=== PATIENT | female | born 1970 | race Caucasian/White ===

== ENCOUNTER 2018-05-24 07:59 | Emergency (ER) | payer OTHER ==
[2018-05-24 08:02] VITALS: BMI 26.8
[2018-05-24 08:04] VITALS: O2SAT 100
--- NOTE | 2018-05-24 09:25 | ED PDOC ---
HPI: Back Time Seen by Provider: 05/24/18 08:26 Chief Complaint (Nursing): Back Pain History Per: Patient Additional Complaint(s): 48 y/o F with no PMHx presents to ED due to neck pain that began 3 days ago. Pain is sharp and dull, base of skull travel to upper back and both shoulders, 8/10 intensity, aggravated with movement of head and neck. 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 No paresthesias reported. Pt has been taking PO Advil 4 pills a day with no relief. Pt took PO Percocet from 's stock yesterday. Pt denies fever, chills, chest pain, nausea, vomiting, abdominal pain, rash and peripheral edema. PMD: Dr Martin Flores PMHx: asthma PSHx: . FHx: NC SHx: denied tobacco, alcohol or rec drugs. Past Medical History Vital Signs: Last Vital Signs Temp 98.2 F 05/24/18 08:02 Pulse 82 05/24/18 08:02 Resp 17 05/24/18 08:02 BP 148/89 05/24/18 08:02 Pulse Ox 100 05/24/18 08:02 - Medical History PMH: Asthma - Surgical History Surgical History: (x2) - Family History Family History: States: Unknown Family Hx - Living Arrangements Living Arrangements: With Family - Social History Current smoker - smoking cessation education provided: No Ex-Smoker (has not smoked in the last 12 months): No Alcohol: None Drugs: Denies - Home Medications Home Medications: Ambulatory Orders Medication Instructions Recorded Cyclobenzaprine [Cyclobenzaprine 10 mg PO Q8 #10 tab 05/24/18 HCl] Naproxen [Naprosyn] 500 mg PO Q12H #20 tab 05/24/18 - Allergies Allergies/Adverse Reactions: Allergies Allergy/AdvReac Type Severity Reaction Status Date / Time seasonal Allergy CONGESTION Uncoded 03/20/18 08:56 Review of Systems Constitutional: Negative for: Fever, Chills Eyes: Negative for: Pain, Conjunctivae Inflammation ENT: Negative for: Ear Pain, Mouth Pain, Throat Pain Cardiovascular: Negative for: Chest Pain, Palpitations Respiratory: Negative for: Cough, Shortness of Breath Gastrointestinal: Negative for: Nausea, Vomiting, Abdominal Pain Genitourinary Female: Negative for: Dysuria, Frequency Musculoskeletal: Positive for: Neck Pain, Shoulder Pain, Back Pain (upper back) Skin: Negative for: Rash Neurological: Negative for: Weakness, Numbness, Incoordination Psych: Negative for: Anxiety, Depression Physical Exam - Physical Exam Appears: Positive for: Uncomfortable Head Exam: Positive for: ATRAUMATIC, NORMAL INSPECTION Skin: Positive for: Normal Color Eye Exam: Positive for: Normal appearance, EOMI ENT: Negative for: Nasal Congestion, Pharyngeal Erythema, Tonsillar Exudate Neck: Positive for: Limited ROM (due to pain), Trachea Midline, Pain On Movement Of Neck (Tederness on cervical spine since occipital area to . No paraspinal tenderness. Reduced ROM of bilateral upper extremities due to pain, 90 degrees of abduction after that very painfu.) Cardiovascular/Chest: Positive for: Regular Rate, Rhythm Respiratory: Positive for: Normal Breath Sounds. Negative for: Rhonchi, Stridor, Wheezing Gastrointestinal/Abdominal: Positive for: Bowel Sounds, Soft. Negative for: Tenderness, Guarding Back: Positive for: Vertebral Tenderness (on cervical spine), Decreased ROM (of bilateral upper extremities). Negative for: L CVA Tenderness, R CVA Tenderness Neurologic/Psych: Positive for: Alert, epidemiology internship II-XII (grossly normal. ), Oriented, Motor/Sensory Deficits (SILT on bilateral upper extremities. ), Cerebellar Tests (Romberg's negative. ) - ECG O2 Sat by Pulse Oximetry: 100 Medical Decision Making Medical Decision Making: At 09:30, pt evaluated in discomfort due to pain. --Cervical spine X-ray --Toradol for pain. At 10:05, pt reported some improvement of pain after medication. Cervical X-ray were reviewed with Dr Rushing, unremarkable results, no fracture. --Pt was educated on the most probable musculoskeletal etiology. --Pt instructed to follow conservative management, local warm compresses and rest. --Will d/c home with Naproxen for pain management and Flexeril, muscle relaxant. Disposition - Clinical Impression Clinical Impression: Cervical radiculopathy - Patient ED Disposition Is Patient to be Admitted: No - Disposition Referrals: [facility] [Outside] Disposition: Routine/Home Disposition Time: 10:24 Condition: FAIR Prescriptions: Cyclobenzaprine [Cyclobenzaprine HCl] 10 mg PO Q8 #10 tab Naproxen [Naprosyn] 500 mg PO Q12H #20 tab Instructions: Radiculopathy Forms: [facility] (Finnish), [facility] ED School/Work Excuse
--- NOTE | 2018-05-24 09:59 | RAD ---
Date of service: 05/24/2018 PROCEDURE: Cervical Spine Radiographs. HISTORY: Pain. COMPARISON: None. FINDINGS: BONES: Straightened cervical curvature without fracture or spondylolisthesis identified. Prominent spondylosis appreciated anteriorly at C5-6 with minimal posterior osteophytes here is well. The odontoid process appears intact based on the lateral view. Frontal view of the adductor process is suboptimal due to obscuring by teeth. Craniocervical junction appears intact. DISC SPACES: As above. SOFT TISSUES: Normal. No prevertebral soft tissue swelling. OTHER FINDINGS: No significant bony neural foraminal stenosis bilaterally. IMPRESSION: Degenerative spondylosis C5-6, predominantly anterior and minimally posterior in location. No fracture or spondylolisthesis. Straightened curvature. Further evaluation by MRI can be provided if clinically warranted. No significant bony neural foraminal stenosis.
[2018-05-24 10:26] VITALS: BP 136/78; PULSE 80; RESP 16; TEMP 98
== END 2018-05-24 10:26 | disposition home or self-care (01) ==
LOC: H.ER 07:59
DX: M54.12 Radiculopathy, cervical region (principal)
CPT/HCPCS: 72050; 81025; 96372; 99282; J1885